=== PATIENT | female | born 1965 | race Caucasian/White ===

== ENCOUNTER 2023-04-04 11:40 | Outpatient (CLI) | payer OTHER, SELFPAY | END 2023-04-04 11:41 | disposition home or self-care (01) | LOC: NFLDREF 04-05 07:28 | PROVIDERS: PCP Internal Medicine; Referring Provider Internal Medicine; Visit Provider Internal Medicine | DX: Z13.6 Encounter for screening for cardiovascular disorders (principal); Z13.1 Encounter for screening for diabetes mellitus | CPT/HCPCS: 80061; 82947 ==

== ENCOUNTER 2023-04-18 15:25 | Outpatient (CLI) | payer OTHER, SELFPAY ==
--- NOTE | 2023-04-18 15:40 | CRLHL7_ITS ---
For Patients: As a result of the Century Cures Act, medical imaging exams and procedure reports are released immediately into your electronic medical record. You may view this report before your referring provider. If you have questions, please contact your health care provider. BILATERAL SCREENING MAMMOGRAM WITH COMPUTER-AIDED DETECTION AND TOMOSYNTHESIS TECHNIQUE: CC and MLO views were obtained. These mammographic images have been obtained using full-field digital technique. These mammographic images were interpreted with the benefit of computer-aided detection. Breast Tomosynthesis was used in this interpretation. COMPARISON FILM: 07/02/12, US 07/02/12 right. FINDINGS: The breasts are heterogeneously dense, which may obscure small masses IMPRESSION: There is no radiographic evidence for malignancy. ASSESSMENT: BI-RADS Category 1: Negative RECOMMENDATION: Routine screening mammogram in 1 year. A lay language report of this examination will be provided to the patient. Dennis Christie M.D. Diagnostic Radiologist [email or web address] FELIPE/Dictated by: Dennis Christie MD @ 04/19/2023 12:41:00 PM (Electronically Signed)
== END 2023-04-18 15:26 | disposition home or self-care (01) ==
LOC: MAMMO 15:26
PROVIDERS: PCP Internal Medicine; Visit Provider Internal Medicine
DX: Z12.31 Encounter for screening mammogram for malignant neoplasm of breast (principal); R92.2 Inconclusive mammogram
CPT/HCPCS: 77063; 77067

== ENCOUNTER 2025-01-07 10:26 | Outpatient (CLI) | payer OTHER, SELFPAY | END 2025-01-07 10:27 | disposition home or self-care (01) | LOC: NFLDREF 10:27 | PROVIDERS: PCP Internal Medicine; Visit Provider Family Medicine | DX: N30.01 Acute cystitis with hematuria (principal); N39.0 Urinary tract infection, site not specified | CPT/HCPCS: 87086 ==

== ENCOUNTER 2025-01-08 09:37 | Emergency (ER) | payer OTHER, SELFPAY ==
--- OUTSIDE RECORDS SUMMARY | 2025-01-08 09:40 | XMS_ITS | Clinical Summary ---
Author Organization [facility] Address [address] [address] Phone Care Team Providers Care Patrol Supervisor Name Role Phone Unavailable Primary Care Provider Unavailabl e Allergies Active Allergy Reactions Criticality Noted Date Comments Sulfa Drugs Dizziness 06/14/2016 Azithromycin RASH 06/14/2016 Medications No known medications Social History Tobacco Use Types Packs/Day Years Used Date Smoking Tobacco: Never Assessed Comments No Sex and Gender Information Value Date Recorded Sex Assigned at Not on file Legal Sex Female 6:55 PM CDT Gender Identity Not on file Sexual Orientation Not on file Last Filed Vital Signs Vital Sign Reading Time Taken Comments Blood Pressure 179/98 06/14/2016 7:05 PM CDT Pulse 95 06/14/2016 7:05 PM CDT Temperature 36.7 C (98 F) 06/14/2016 7:05 PM CDT Respiratory Rate 16 06/14/2016 7:05 PM CDT Oxygen Saturation 98% 06/14/2016 7:05 PM CDT Inhaled Oxygen Concentration - - Weight - - Height - - Body Mass Index - - Plan of Treatment Not on file
[2025-01-08 09:59] VITALS: BP 137/85; PULSE 96; RESP 18; TEMP 37.1; O2SAT 96; BMI 29.2
--- NOTE | 2025-01-08 10:15 | CRLHL7_ITS ---
For Patients: As a result of the Cures Act, medical imaging exams and procedure reports are released immediately into your electronic medical record. You may view this report before your referring provider. If you have questions, please contact your health care provider. INDICATION: Injury of right 4th finger COMPARISON: None. TECHNIQUE: Three views right 4th finger FINDINGS: There is a tiny chip fracture along the lateral distal aspect of the right 4th finger proximal phalanx. Minimal disruption of the articular surface. Normal joint alignment. Joint spaces are normal. No focal bone lesions. Normal bone mineralization. Soft tissue swelling around the proximal interphalangeal joint. No foreign body. IMPRESSION: Tiny nondisplaced articular surface fracture of the right 4th finger proximal phalanx with adjacent soft tissue swelling. Dictated by Justine Wick MD @ 01/08/2025 10:39:54 AM (Electronically Signed)
--- OUTSIDE RECORDS SUMMARY | 2025-01-08 10:25 | XMS_ITS | Clinical Summary ---
Author Organization [facility] Address [address] [address] Phone Care Team Providers Care Mine Expert Name Role Phone Unavailable Primary Care Provider [...]
--- NOTE | 2025-01-08 12:05 | ED.GENADULT ---
HPI - General Adult General Date Seen: 01/08/25 Chief complaint: Extremity Pain/Injury, Upper Stated complaint: R finger injury Time Seen by Provider: 01/08/25 09:42 History of Present Illness HPI narrative: Patient is a 59-year-old woman who hit her hand on a door frame yesterday while at work. She noted pain in her right foot 4th finger, did not think much of it but today it is much more swollen and stiff. No other injuries or complaints. Related Data Home Medications ?Medication ?Instructions ?Recorded ?Confirmed ciprofloxacin HCl 250 mg tablet 250 mg PO BID 01/08/25 01/08/25 fluoxetine 20 mg capsule 20 mg PO DAILY 01/08/25 01/08/25 Allergies Allergy/AdvReac Type Severity Reaction Status Date / Time Sulfa (Sulfonamide Allergy Severe Verified 01/08/25 10:04 Antibiotics) PFSH PFS Social History Smoking Status: Never smoker Do you use any of these nicotine containing products: None How often do you have a drink containing alcohol: never AUDIT-C Alcohol total score: 0 Non-prescribed substance use: denies use Exam Narrative: Exam Narrative: Vital signs reviewed In general, alert, well-appearing woman. Extremities: Examination of the right hand shows swelling and mild bruising of the 4th finger primarily over the middle phalanx and PIP joint. She has tenderness over the PIP joint. Range of motion is somewhat limited due to swelling, she is able to extend to about 10-15 degrees shy of full extension. Flexion is intact. Const: Vital Signs, click to edit/add: Vital Signs - 24 hr 01/08/25 09:59 Temperature 98.7 F Pulse Rate [Right Pulse Oximeter] 96 Respiratory Rate 18 Blood Pressure [Ri ght Upper Arm] 137/85 Pulse Oximetry 96 Oxygen Delivery Me thod Room Air Documenting provider has reviewed patient's vital signs: yes Course Course ED Course: X-rays of the right 4th finger by my review show just a tiny chip of the proximal phalanx at the PIP joint. Radiology report reviewed, in agreement. No other findings. Discussed this with her. Assuming this heals well and she has good function of that finger, should not need anything else. However, discussed that if she does not feel she is returning to full range of motion over the next week she should be seen by Orthopedics to make sure she does not have a tendon injury or problems with the joint given that the fracture is intra-articular. Finger splint placed here today. Vital Signs Vital signs: Initial Vital Signs Temperature 98.7 F 01/08/25 09:59 Temperature Source Temporal Artery Scan 01/08/25 09:59 Pulse Rate 96 01/08/25 09:59 Pulse Rhythm Regular 01/08/25 09:59 Pulse Strength 3+ Normal 01/08/25 09:59 Respiratory Rate 18 01/08/25 09:59 Blood Pressure 137/85 01/08/25 09:59 Blood Pressure Mean 102 01/08/25 09:59 Blood Pressure Position Sitting 01/08/25 09:59 Pulse Oximetry 96 01/08/25 09:59 Oxygen Delivery Method Room Air 01/08/25 09:59 Vital Signs Temperature 98.7 F 01/08/25 09:59 Pulse Rate 96 01/08/25 09:59 Respiratory Rate 18 01/08/25 09:59 Blood Pressure 137/85 01/08/25 09:59 Pulse Oximetry 96 01/08/25 09:59 Oxygen Delivery Method Room Air 01/08/25 09:59 Temperature 98.7 F 01/08/25 09:59 Pulse Rate 96 01/08/25 09:59 Respiratory Rate 18 01/08/25 09:59 Blood Pressure 137/85 01/08/25 09:59 Pulse Oximetry 96 01/08/25 09:59 Oxygen Delivery Method Room Air 01/08/25 09:59 Discharge Plan Discharge Clinical Impression: Finger fracture, right Patient Disposition: Home, Self-Care Condition: Stable Prescriptions: No Action ciprofloxacin HCl 250 mg tablet 250 mg PO BID fluoxetine 20 mg capsule 20 mg PO DAILY Follow Up/Referrals: Kira Preston MD [Primary Care Provider] -
== END 2025-01-08 12:04 | disposition home or self-care (01) ==
LOC: ED 10:23
PROVIDERS: Emergency Provider Emergency Medicine; PCP Internal Medicine
DX: S62.644A Nondisplaced fracture of proximal phalanx of right ring finger, initial encounter for closed fracture (principal); W22.8XXA Striking against or struck by other objects, initial encounter
CPT/HCPCS: 29130; 73140; 99283

== ENCOUNTER 2025-01-11 10:47 | Outpatient (CLI) | payer OTHER, SELFPAY | END 2025-01-11 10:48 | disposition home or self-care (01) | PROVIDERS: PCP Internal Medicine; Visit Provider Nurse Practitioner | DX: R10.32 Left lower quadrant pain (principal); R82.90 Unspecified abnormal findings in urine | CPT/HCPCS: 87086 ==

== ENCOUNTER 2025-01-30 13:45 | Outpatient (CLI) | payer OTHER, SELFPAY | END 2025-01-30 13:46 | disposition home or self-care (01) | LOC: NFLDREF 01-31 03:17 | PROVIDERS: PCP Internal Medicine; Referring Provider Internal Medicine; Visit Provider Family Medicine | DX: R31.9 Hematuria, unspecified (principal) | CPT/HCPCS: 87086 ==

== ENCOUNTER 2025-05-14 07:40 | Outpatient (CLI) | payer OTHER, SELFPAY | END 2025-05-14 07:41 | disposition home or self-care (01) | LOC: NFLDREF 05-16 13:00 | PROVIDERS: PCP Internal Medicine; Referring Provider Internal Medicine; Visit Provider Internal Medicine | DX: E78.5 Hyperlipidemia, unspecified (principal) | CPT/HCPCS: 80061 ==

== ENCOUNTER 2025-07-21 09:30 | Outpatient (CLI) | payer OTHER, SELFPAY ==
--- NOTE | 2025-07-21 11:15 | P.ANES_ITS ---
Anesthesia Charges Start Date/Time Anesthesia Start Date: 07/21/25 Anesthesia Start Time: 10:41 Stop Date/Time Anesthesia Stop Date: 07/21/25 Anesthesia Stop Time: 11:08 Coding CPT Codes CPT Codes: APARNA LWR INTST SCR COLSC - 33937 ([id number]) P2 - PATIENT W/MILD SYST DISEASE, QK - SYNTHETIC SOIL BLOCKS PULPER 2-4 CNCRNT ANES PROC
--- NOTE | 2025-07-21 11:15 | W.ANESCHARGE ---
Anesthesia Charges Start Date/Time Anesthesia Start Date: 07/21/25 Anesthesia Start Time: 10:41 Stop Date/Time Anesthesia Stop Date: 07/21/25 Anesthesia Stop Time: 11:08 Coding CPT Codes CPT Codes: APARNA LWR INTST SCR COLSC - 91703 ([id number]) P2 - PATIENT W/MILD SYST DISEASE, QK - STEAMFITTER APPRENTICE 2-4 CNCRNT ANES PROC
--- NOTE | 2025-07-21 11:21 | P.ANES_ITS ---
Anesthesia Charges Start Date/Time Anesthesia Start Date: 07/21/25 Anesthesia Start Time: 10:41 Stop Date/Time Anesthesia Stop Date: 07/21/25 Anesthesia Stop Time: 11:08 Coding CPT Codes CPT Codes: APARNA LWR INTST SCR COLSC - 23069 ([id number]) QK - ACCOUNTING PRACTICE MANAGER 2-4 CNCRNT APARNA PROC, QX - ACCOUNT RESOLUTION EXPERT SVC W/ MD MED DIRECTION, P2 - PATIENT W/MILD SYST DISEASE
--- NOTE | 2025-07-21 11:21 | W.ANESCHARGE ---
Anesthesia Charges Start Date/Time Anesthesia Start Date: 07/21/25 Anesthesia Start Time: 10:41 Stop Date/Time Anesthesia Stop Date: 07/21/25 Anesthesia Stop Time: 11:08 Coding CPT Codes CPT Codes: APARNA LWR INTST SCR COLSC - 80911 ([id number]) QK - EXPERIMENTAL AIRCRAFT MECHANIC 2-4 CNCRNT APARNA PROC, QX - SERVICE ESTABLISHMENT ATTENDANT SVC W/ MD MED DIRECTION, P2 - PATIENT W/MILD SYST DISEASE
== END 2025-07-21 09:31 | disposition home or self-care (01) ==
LOC: OP CLINIC 09:30
PROVIDERS: PCP Internal Medicine; Visit Provider Surgery
DX: Z12.11 Encounter for screening for malignant neoplasm of colon (principal); Z80.0 Family history of malignant neoplasm of digestive organs; Z86.0100 Personal history of colon polyps, unspecified
CPT/HCPCS: 00812; 45378; J2704

== ENCOUNTER 2025-09-30 10:50 | Outpatient (CLI) | payer OTHER, SELFPAY ==
--- NOTE | 2025-09-30 12:00 | CRLHL7_ITS ---
For Patients: As a result of the Century Cures Act, medical imaging exams and procedure reports are released immediately into your electronic medical record. You may view this report before your referring provider. If you have questions, please contact your health care provider. INDICATION: BILATERAL SCREENING MAMMOGRAM, ASYMPTOMATIC 60 Y/O FEMALE COMPARISON: 04/18/2023 TECHNIQUE: Digital mammogram in CC and MLO projections including computer-aided detection (CAD) and tomosynthesis. BREAST COMPOSITION: There are scattered areas of fibroglandular density. FINDINGS: No suspicious findings. ASSESSMENT: BI-RADS 1 Negative RECOMMENDATION: Annual screening mammogram. A lay language report of this examination will be provided to the patient. Dictated by: Nomra Godinez MD @ 10/01/2025 20:43:51 (Electronically Signed)
== END 2025-09-30 10:51 | disposition home or self-care (01) ==
LOC: MAMMO 10:51
PROVIDERS: PCP Internal Medicine; Visit Provider Internal Medicine
DX: Z12.31 Encounter for screening mammogram for malignant neoplasm of breast (principal)
CPT/HCPCS: 77063; 77067